=== PATIENT | male | born 1945 | race Caucasian/White ===

== ENCOUNTER 2017-01-02 10:30 | Inpatient (IN) | payer MEDICARE, MEDICAID ==
[~2017-01-02] VITALS: Ht 167.6 cm; Wt 89.4 kg
[~2017-01-02 10:30] MED LIST: ACET325T14 PO; ALBU8.5H5 INH; AMIO200T42 PO; APIX5TAB PO; ASPI-621 PO; AZIT250T PO; BENZ100C4 PO; BLOOD PRESSURE MED PO; BUDE10.22 INH; CEFD300C37 PO; ENOX40SY4 SQ; FLUT1AER INH; FLUT1DIS INH; FLUT1DIS3 INH; GUAI600T22 PO; HYDR-3138 PO; INSU100I18 SQ-INSULIN; IPRA3AMP NPPB; ISOS30TA8 PO; LISI-167 PO; LISI5TAB7 PO; METF100010 PO; METF500T27 PO; METF500T4 PO; METF850T2 PO; METH10TA6 PO; METH750T2 PO; METO50TA82 PO; NICO1PAT4 TD; NICO1PAT5 TD; PRED10TA PO; PRED20TA PO; TIOT18CA INH
[2017-01-02] MEDS ORDERED: SODIUM CHLORIDE 0.9% 1,000 ML IV ONE (10:50)
[2017-01-02] MEDS ORDERED: ALBUTEROL/IPRATROPIUM 2.5MG/0.5MG, 3 ML ONE (10:58)
[2017-01-02] MEDS ORDERED: methylPREDNISolone SOD SUCC 125 MG/2 ML IVP ONE (11:00)
[2017-01-02] MEDS ORDERED: ALBUTEROL/IPRATROPIUM 2.5MG/0.5MG, 3 ML NPPB ONE (11:00)
[2017-01-02] MEDS ORDERED: SODIUM CHLORIDE FLUSH 10ML SYR IVF ONE (11:00)
[2017-01-02] MEDS ORDERED: methylPREDNISolone SOD SUCC 125 MG/2 ML ONE (11:08)
[2017-01-02] MEDS ORDERED: METH10TA6 PO (11:20)
[2017-01-02] MEDS ORDERED: CEFTRIAXONE PMX 1GM/50ML 50 ML IVPB ONE (12:00)
[2017-01-02] MEDS ORDERED: AZITHROMYCIN 500 MG in SODIUM CHLORIDE 0.9% 250 ML IV ONE (12:00)
[2017-01-02] MEDS ORDERED: MORPHINE SULFATE 4 MG/ML, 1ML ONE (12:08)
[2017-01-02] MEDS ORDERED: CEFTRIAXONE PMX 1GM/50ML 50 ML ONE (12:09)
[2017-01-02 12:19] LABS: BLOOD UREA NITROGEN 27 mg/dL (7-18)
[2017-01-02 12:24] LABS: IS PT STATUS REG ER OR PRE ER? YES
[2017-01-02] MEDS ORDERED: MORPHINE SULFATE 4 MG/ML, 1ML IVPush ONE (12:30)
[2017-01-02] MEDS ORDERED: INSULIN REGULAR 100 UNITS/ML, 3ML VIAL IVPush ONE (13:00)
[2017-01-02] MEDS ORDERED: DEXTROSE 50%, 50ML SYRINGE IVPush ONE (13:00)
[2017-01-02] MEDS ORDERED: DEXTROSE 50%, 50ML SYRINGE ONE (13:01)
[2017-01-02] MEDS ORDERED: INSULIN REGULAR 100 UNITS/ML, 3ML VIAL ONE (13:01)
[2017-01-02] MEDS: CEFTRIAXONE PMX 1GM/50ML 50 ML IV SCH (13:16)
[2017-01-02] MEDS ORDERED: LABETALOL 5MG/ML, 20ML IV PRN (13:30)
[2017-01-02] MEDS ORDERED: BISACODYL 10 MG SUPP PR PRN (13:30)
[2017-01-02] MEDS ORDERED: POLYETHYLENE GLYCOL 17 GM PACKET PO PRN (13:30)
[2017-01-02] MEDS ORDERED: ONDANSETRON 2MG/ML, 2ML IVP PRN (13:30)
[2017-01-02] MEDS ORDERED: DOCUSATE 100 MG CAPSULE PO PRN (13:30)
[2017-01-02] MEDS ORDERED: ACETAMINOPHEN 325 MG TABLET PO PRN (13:30)
[2017-01-02] MEDS: methylPREDNISolone SOD SUCC 125 MG/2 ML IVPush SCH ×2 (13:45→21:51)
[2017-01-02 14:33] VITALS: BP 109/79
[2017-01-02] MEDS: ALBUTEROL/IPRATROPIUM 2.5MG/0.5MG, 3 ML NPPB SCH ×2 (14:50→20:00)
[2017-01-02] MEDS: DOXYCYCLINE 100 MG in DEXTROSE 5% 250 ML IV SCH (15:58)
[2017-01-02] MEDS: MORPHINE SULFATE 4 MG/ML, 1ML IVPush PRN (15:58)
[2017-01-02] MEDS: HYDROcodone/APAP 5/325 TABLET PO PRN (17:43)
[2017-01-02] MEDS ORDERED: OMNIPAQUE 350 MG/ML, 100ML BOTTLE ONE (18:30)
[2017-01-02 20:55] VITALS: BP 132/80
[2017-01-02] MEDS: GUAIFENESIN ER 600 MG TABLET PO SCH (21:50)
[2017-01-02] MEDS: HEPARIN 5,000 UNITS/ML, 1ML SQ SCH (21:51)
[2017-01-02] MEDS: METOPROLOL TARTRATE 50 MG TABLET PO SCH (21:51)
[2017-01-02 22:00] VITALS: BP 124/71
[2017-01-03] MEDS: SODIUM CHLORIDE 0.9% 1,000 ML IV SCH ×2 (00:25→15:06)
[2017-01-03] MEDS: ALBUTEROL/IPRATROPIUM 2.5MG/0.5MG, 3 ML NPPB SCH ×5 (02:00→19:45)
[2017-01-03 02:14] VITALS: BP 122/75
[2017-01-03] MEDS: HYDROcodone/APAP 5/325 TABLET PO PRN ×4 (04:32→22:09)
[2017-01-03] MEDS: DOXYCYCLINE 100 MG in DEXTROSE 5% 250 ML IV SCH ×2 (04:49→17:04)
[2017-01-03] MEDS: HEPARIN 5,000 UNITS/ML, 1ML SQ SCH ×3 (04:53→21:51)
[2017-01-03] MEDS: methylPREDNISolone SOD SUCC 125 MG/2 ML IVPush SCH ×3 (04:53→21:51)
[2017-01-03] MEDS: ASPIRIN 81 MG TABLET EC PO SCH (04:58)
[2017-01-03 06:18] LABS: BLOOD UREA NITROGEN 27 mg/dL (7-18)
[2017-01-03 06:55] VITALS: BP 156/93
[2017-01-03] MEDS: metFORMIN XR 500 MG TAB.ER.24H PO SCH ×3 (07:46→09:00)
[2017-01-03] MEDS: GUAIFENESIN ER 600 MG TABLET PO SCH ×2 (07:46→21:51)
[2017-01-03] MEDS: ISOSORBIDE MONONITRATE ER 30 MG TABLET PO SCH (07:48)
[2017-01-03] MEDS: METOPROLOL TARTRATE 50 MG TABLET PO SCH ×2 (07:48→21:51)
[2017-01-03] MEDS: FLUTICASONE/VILANTEROL 100-25MCG/INH INH SCH (08:04)
[2017-01-03] MEDS ORDERED: LISINOPRIL 10 MG TABLET PO SCH (09:00)
[2017-01-03 11:23] LABS: IS PT STATUS REG ER OR PRE ER? NO
[2017-01-03] MEDS: INSULIN REGULAR 100 UNITS/ML, 3ML VIAL SQ-INSULIN SCH ×3 (12:00→22:08)
[2017-01-03 13:26] VITALS: BP 112/65
[2017-01-03] MEDS: CEFTRIAXONE PMX 1GM/50ML 50 ML IV SCH (15:07)
[2017-01-03 20:40] VITALS: BP 136/78
[2017-01-03 21:58] VITALS: BP 145/79
[2017-01-04 01:26] VITALS: BP 188/117
[2017-01-04] MEDS ORDERED: LABETALOL 5MG/ML, 20ML IV PRN (01:34)
[2017-01-04] MEDS: MORPHINE SULFATE 4 MG/ML, 1ML IVPush PRN (01:41)
[2017-01-04 01:45] VITALS: BP 155/82
[2017-01-04 03:29] LABS: ABG COLLECTION SITE NOT DOCUMENTED
[2017-01-04 03:41] LABS: BLOOD UREA NITROGEN 31 mg/dL (7-18)
[2017-01-04] MEDS: HYDROcodone/APAP 5/325 TABLET PO PRN (03:54)
[2017-01-04] MEDS: DOXYCYCLINE 100 MG in DEXTROSE 5% 250 ML IV SCH ×2 (03:56→16:18)
[2017-01-04] MEDS: methylPREDNISolone SOD SUCC 125 MG/2 ML IVPush SCH ×2 (05:11→18:11)
[2017-01-04] MEDS: HEPARIN 5,000 UNITS/ML, 1ML SQ SCH ×3 (05:11→20:28)
[2017-01-04] MEDS: ASPIRIN 81 MG TABLET EC PO SCH (05:11)
[2017-01-04] MEDS: ALBUTEROL/IPRATROPIUM 2.5MG/0.5MG, 3 ML NPPB SCH ×4 (07:15→19:05)
[2017-01-04 08:28] VITALS: BP 149/94
[2017-01-04] MEDS: FLUTICASONE/VILANTEROL 100-25MCG/INH INH SCH (08:50)
[2017-01-04] MEDS: GUAIFENESIN ER 600 MG TABLET PO SCH ×2 (08:50→20:29)
[2017-01-04] MEDS: INSULIN REGULAR 100 UNITS/ML, 3ML VIAL SQ-INSULIN SCH ×4 (08:50→20:28)
[2017-01-04] MEDS: METOPROLOL TARTRATE 50 MG TABLET PO SCH ×2 (08:51→20:29)
[2017-01-04] MEDS: ISOSORBIDE MONONITRATE ER 30 MG TABLET PO SCH (08:51)
[2017-01-04] MEDS: CEFTRIAXONE PMX 1GM/50ML 50 ML IV SCH (13:09)
[2017-01-04 15:30] VITALS: BP 113/52
[2017-01-04 20:15] VITALS: BP 142/73
[2017-01-05 00:08] VITALS: BP 173/92
[2017-01-05] MEDS: DOXYCYCLINE 100 MG in DEXTROSE 5% 250 ML IV SCH ×2 (04:23→16:30)
[2017-01-05] MEDS: HEPARIN 5,000 UNITS/ML, 1ML SQ SCH ×3 (04:24→20:42)
[2017-01-05] MEDS: HYDROcodone/APAP 5/325 TABLET PO PRN ×2 (04:32→08:54)
[2017-01-05] MEDS: methylPREDNISolone SOD SUCC 125 MG/2 ML IVPush SCH ×2 (05:26→17:41)
[2017-01-05] MEDS: ASPIRIN 81 MG TABLET EC PO SCH (05:26)
[2017-01-05 06:12] LABS: BLOOD UREA NITROGEN 37 mg/dL (7-18)
[2017-01-05] MEDS: ALBUTEROL/IPRATROPIUM 2.5MG/0.5MG, 3 ML NPPB SCH ×4 (07:00→20:00)
[2017-01-05 07:48] VITALS: BP 158/92
[2017-01-05] MEDS: GUAIFENESIN ER 600 MG TABLET PO SCH (08:06)
[2017-01-05] MEDS: ISOSORBIDE MONONITRATE ER 30 MG TABLET PO SCH (08:06)
[2017-01-05] MEDS: FLUTICASONE/VILANTEROL 100-25MCG/INH INH SCH (08:06)
[2017-01-05] MEDS: INSULIN REGULAR 100 UNITS/ML, 3ML VIAL SQ-INSULIN SCH ×4 (08:06→20:43)
[2017-01-05] MEDS: METOPROLOL TARTRATE 50 MG TABLET PO SCH ×2 (08:07→20:41)
[2017-01-05] MEDS ORDERED: BENZONATATE 100 MG CAPSULE PO PRN (11:00)
[2017-01-05] MEDS: CEFTRIAXONE PMX 1GM/50ML 50 ML IV SCH (13:26)
[2017-01-05 13:59] VITALS: BP 127/79
[2017-01-05 20:21] VITALS: BP 168/95
[2017-01-05] MEDS: MORPHINE SULFATE 4 MG/ML, 1ML IVPush PRN (20:42)
[2017-01-06 04:00] VITALS: BP 188/97
[2017-01-06] MEDS: HEPARIN 5,000 UNITS/ML, 1ML SQ SCH ×3 (04:50→22:12)
[2017-01-06] MEDS: DOXYCYCLINE 100 MG in DEXTROSE 5% 250 ML IV SCH ×2 (04:50→16:39)
[2017-01-06] MEDS: ASPIRIN 81 MG TABLET EC PO SCH (04:51)
[2017-01-06] MEDS: methylPREDNISolone SOD SUCC 125 MG/2 ML IVPush SCH ×2 (04:51→16:39)
[2017-01-06 06:23] LABS: BLOOD UREA NITROGEN 42 mg/dL (7-18)
[2017-01-06] MEDS: ALBUTEROL/IPRATROPIUM 2.5MG/0.5MG, 3 ML NPPB SCH ×4 (07:00→19:27)
[2017-01-06 07:32] VITALS: BP 149/101
[2017-01-06] MEDS: FLUTICASONE/VILANTEROL 100-25MCG/INH INH SCH (08:53)
[2017-01-06] MEDS: METOPROLOL TARTRATE 50 MG TABLET PO SCH ×2 (08:53→22:11)
[2017-01-06] MEDS: ISOSORBIDE MONONITRATE ER 30 MG TABLET PO SCH (08:53)
[2017-01-06] MEDS: INSULIN REGULAR 100 UNITS/ML, 3ML VIAL SQ-INSULIN SCH ×4 (08:55→22:13)
[2017-01-06] MEDS: MORPHINE SULFATE 4 MG/ML, 1ML IVPush PRN ×2 (09:06→22:33)
[2017-01-06] MEDS: GUAIFENESIN 200 MG TABLET PO SCH ×3 (11:20→21:00)
[2017-01-06 12:09] LABS: BLOOD UREA NITROGEN 41 mg/dL (7-18)
[2017-01-06] MEDS: CEFTRIAXONE PMX 1GM/50ML 50 ML IV SCH (14:24)
[2017-01-06 14:47] VITALS: BP 129/51
[2017-01-06 20:00] VITALS: BP 129/70
[2017-01-07 02:00] VITALS: BP 148/96
[2017-01-07] MEDS: DOXYCYCLINE 100 MG in DEXTROSE 5% 250 ML IV SCH (04:53)
[2017-01-07] MEDS: ASPIRIN 81 MG TABLET EC PO SCH (05:00)
[2017-01-07] MEDS: methylPREDNISolone SOD SUCC 125 MG/2 ML IVPush SCH (05:00)
[2017-01-07 05:35] LABS: BLOOD UREA NITROGEN 45 mg/dL (7-18)
[2017-01-07] MEDS: GUAIFENESIN 200 MG TABLET PO SCH ×2 (06:21→11:16)
[2017-01-07] MEDS: HEPARIN 5,000 UNITS/ML, 1ML SQ SCH (06:21)
[2017-01-07] MEDS: ALBUTEROL/IPRATROPIUM 2.5MG/0.5MG, 3 ML NPPB SCH ×2 (07:00→10:04)
[2017-01-07 08:10] VITALS: BP 181/108
[2017-01-07] MEDS: INSULIN REGULAR 100 UNITS/ML, 3ML VIAL SQ-INSULIN SCH ×2 (08:11→11:17)
[2017-01-07] MEDS: FLUTICASONE/VILANTEROL 100-25MCG/INH INH SCH (08:11)
[2017-01-07] MEDS: METOPROLOL TARTRATE 50 MG TABLET PO SCH (08:12)
[2017-01-07] MEDS: ISOSORBIDE MONONITRATE ER 30 MG TABLET PO SCH (08:12)
[2017-01-07] MEDS ORDERED: PRED10TA PO (08:52)
[2017-01-07] MEDS ORDERED: CEFD300C37 PO (08:52)
[2017-01-07] MEDS ORDERED: GUAI400T26 PO (08:52)
[2017-01-07 09:10] VITALS: BP 149/82
== END 2017-01-07 12:05 | disposition home or self-care (01) | DRG 871 ==
LOC: ED 11:42 → EDIP 12:15 → 4WST 14:35 → DCLOUNGE 01-07 11:50
PROVIDERS: ADMIT Internal Medicine; ATTEND Internal Medicine
DX: A41.9 Sepsis, unspecified organism (principal); J18.9 Pneumonia, unspecified organism; J96.01 Acute respiratory failure with hypoxia; E87.1 Hypo-osmolality and hyponatremia; D68.69 Other thrombophilia; J44.0 Chronic obstructive pulmonary disease with (acute) lower respiratory infection; J44.1 Chronic obstructive pulmonary disease with (acute) exacerbation; J90 Pleural effusion, not elsewhere classified; E87.5 Hyperkalemia; I48.91 Unspecified atrial fibrillation; E05.90 Thyrotoxicosis, unspecified without thyrotoxic crisis or storm; E11.65 Type 2 diabetes mellitus with hyperglycemia; E66.9 Obesity, unspecified; F17.210 Nicotine dependence, cigarettes, uncomplicated; I11.9 Hypertensive heart disease without heart failure; I25.10 Atherosclerotic heart disease of native coronary artery without angina pectoris; I25.2 Old myocardial infarction; Z79.84 Long term (current) use of oral hypoglycemic drugs; Z82.49 Family history of ischemic heart disease and other diseases of the circulatory system; Z83.3 Family history of diabetes mellitus; Z91.19 Patient's noncompliance with other medical treatment and regimen; Z79.82 Long term (current) use of aspirin; Z79.899 Other long term (current) drug therapy; Z71.6 Tobacco abuse counseling
CPT/HCPCS: 36415; 36600; 71010; 71250; 74178; 80048; 82040; 82803; 82962; 83605; 83880; 84132; 84145; 84484; 85025; 87040; 87070; 87205; 93005; 93306; 94640; 96361; 96365; 96367; 96375; J0456; J0696; J1644; J1815; J7060; J7620; Q9967; J2930; J7030; J7050

== ENCOUNTER 2017-04-11 08:02 | Inpatient (IN) | payer MEDICARE, MEDICAID ==
[~2017-04-11] VITALS: Ht 167.6 cm; Wt 86.7 kg
[~2017-04-11 08:02] MED LIST changes: +GUAI400T26 PO
[2017-04-11] MEDS ORDERED: ALBUTEROL/IPRATROPIUM 2.5MG/0.5MG, 3 ML ONE ×2 (08:24→13:49)
[2017-04-11] MEDS ORDERED: SODIUM CHLORIDE FLUSH 10ML SYR IVF ONE (08:30)
[2017-04-11] MEDS ORDERED: ALBUTEROL/IPRATROPIUM 2.5MG/0.5MG, 3 ML NPPB ONE (08:30)
[2017-04-11] MEDS ORDERED: ONDANSETRON 2MG/ML, 2ML IVPush ONE (08:30)
[2017-04-11 08:35] LABS: HEMATOCRIT 43.8 % (39.2-51.8); HEMOGLOBIN 14.5 g/dL (13.7-18.0); WHITE BLOOD COUNT 13.9 x10^3/uL (3.4-10)
[2017-04-11 08:42] LABS: BLOOD UREA NITROGEN 20 mg/dL (7-18)
[2017-04-11] MEDS ORDERED: ONDANSETRON 2MG/ML, 2ML ONE (08:47)
[2017-04-11] MEDS ORDERED: HYDROmorphone 1 MG/ML, 1ML ONE ×2 (08:47→10:50)
[2017-04-11] MEDS: HYDROmorphone 1 MG/ML, 1ML IVPush PRN ×2 (08:48→10:52)
[2017-04-11 08:51] LABS: IS PT STATUS REG ER OR PRE ER? YES
[2017-04-11] MEDS ORDERED: INSU100I17 SQ (10:46)
[2017-04-11] MEDS ORDERED: D5%-0.45NACL+KCL 20MEQ 1,000 ML IV SCH (11:15)
[2017-04-11] MEDS ORDERED: POLYETHYLENE GLYCOL 17 GM PACKET PO PRN (11:30)
[2017-04-11] MEDS ORDERED: DOCUSATE 100 MG CAPSULE PO PRN (11:30)
[2017-04-11] MEDS ORDERED: BISACODYL 10 MG SUPP PR PRN (11:30)
[2017-04-11] MEDS ORDERED: LABETALOL 5MG/ML, 20ML IVPush PRN (11:30)
[2017-04-11] MEDS ORDERED: ACETAMINOPHEN 325 MG TABLET PO PRN (11:30)
[2017-04-11] MEDS ORDERED: ONDANSETRON 2MG/ML, 2ML IVPush PRN (11:30)
[2017-04-11] MEDS: HYDROcodone/APAP 5/325 TABLET PO PRN ×2 (12:24→16:57)
[2017-04-11] MEDS: HEPARIN 5,000 UNITS/ML, 1ML SQ SCH ×2 (12:24→20:05)
[2017-04-11 13:08] VITALS: BP 160/94
[2017-04-11] MEDS: ALBUTEROL/IPRATROPIUM 2.5MG/0.5MG, 3 ML NPPB SCH ×3 (15:00→20:42)
[2017-04-11 19:13] VITALS: BP 125/81
[2017-04-11] MEDS: METOPROLOL TARTRATE 50 MG TABLET PO SCH (20:05)
[2017-04-11] MEDS: metFORMIN 500 MG TABLET PO SCH (20:05)
[2017-04-11] MEDS: morphine SULFATE 10 MG/ML, 1ML IVPush PRN (20:22)
[2017-04-11 22:48] LABS: PATH.CAST-FLAG NOT PRESENT; SPERM-FLAG NOT PRESENT; SRC-FLAG NOT PRESENT; XTAL-FLAG NOT PRESENT; YLC-FLAG NOT PRESENT
[2017-04-12 00:04] VITALS: BP 142/80
[2017-04-12] MEDS: morphine SULFATE 10 MG/ML, 1ML IVPush PRN ×4 (00:31→16:22)
[2017-04-12 04:08] VITALS: BP 150/85
[2017-04-12] MEDS: HEPARIN 5,000 UNITS/ML, 1ML SQ SCH ×3 (04:59→22:20)
[2017-04-12] MEDS: ASPIRIN 81 MG TABLET EC PO SCH (04:59)
[2017-04-12] MEDS: ALBUTEROL/IPRATROPIUM 2.5MG/0.5MG, 3 ML NPPB SCH ×5 (05:30→20:00)
[2017-04-12 06:09] LABS: HEMATOCRIT 43.9 % (39.2-51.8); HEMOGLOBIN 14.6 g/dL (13.7-18.0); WHITE BLOOD COUNT 15.4 x10^3/uL (3.4-10)
[2017-04-12 06:26] LABS: BLOOD UREA NITROGEN 20 mg/dL (7-18)
[2017-04-12] MEDS: HYDROcodone/APAP 5/325 TABLET PO PRN ×3 (08:11→22:21)
[2017-04-12] MEDS: FLUTICASONE/VILANTEROL 100-25MCG/INH INH SCH (10:04)
[2017-04-12] MEDS: LISINOPRIL 10 MG TABLET PO SCH (10:04)
[2017-04-12] MEDS: ISOSORBIDE MONONITRATE ER 30 MG TABLET PO SCH (10:04)
[2017-04-12] MEDS: metFORMIN 500 MG TABLET PO SCH ×2 (10:05→22:20)
[2017-04-12] MEDS: METOPROLOL TARTRATE 50 MG TABLET PO SCH ×2 (10:05→22:21)
[2017-04-12 15:21] VITALS: BP 97/56
[2017-04-12] MEDS ORDERED: LIDOCAINE 1%, 20ML ONE (16:19)
[2017-04-12 19:12] VITALS: BP 89/54
[2017-04-12 21:06] VITALS: BP 107/66
[2017-04-12] MEDS: KETOROLAC 30 MG/1 ML IVPush PRN (22:21)
[2017-04-13 00:57] VITALS: BP 120/73
[2017-04-13] MEDS: HEPARIN 5,000 UNITS/ML, 1ML SQ SCH ×3 (05:58→20:51)
[2017-04-13] MEDS: ASPIRIN 81 MG TABLET EC PO SCH (05:58)
[2017-04-13] MEDS: KETOROLAC 30 MG/1 ML IVPush PRN (05:59)
[2017-04-13 07:43] LABS: HEMATOCRIT 39.8 % (39.2-51.8); HEMOGLOBIN 13.2 g/dL (13.7-18.0); WHITE BLOOD COUNT 12.4 x10^3/uL (3.4-10)
[2017-04-13] MEDS: ALBUTEROL/IPRATROPIUM 2.5MG/0.5MG, 3 ML NPPB SCH ×4 (07:48→18:55)
[2017-04-13 07:51] LABS: BLOOD UREA NITROGEN 42 mg/dL (7-18)
[2017-04-13 08:40] VITALS: BP 90/59
[2017-04-13] MEDS: METOPROLOL TARTRATE 50 MG TABLET PO SCH ×2 (09:00→20:51)
[2017-04-13] MEDS: LISINOPRIL 10 MG TABLET PO SCH (09:00)
[2017-04-13] MEDS: FLUTICASONE/VILANTEROL 100-25MCG/INH INH SCH (09:10)
[2017-04-13] MEDS: metFORMIN 500 MG TABLET PO SCH (09:11)
[2017-04-13] MEDS: ISOSORBIDE MONONITRATE ER 30 MG TABLET PO SCH (09:11)
[2017-04-13] MEDS ORDERED: DEXTROSE 4 GM TAB.CHEW PO PRN (11:30)
[2017-04-13] MEDS ORDERED: GLUCAGON 1 MG IM PRN (11:30)
[2017-04-13] MEDS: SODIUM CHLORIDE FLUSH 10ML SYR IVF SCH ×2 (11:30→21:00)
[2017-04-13] MEDS ORDERED: DEXTROSE 50%, 50ML SYRINGE IVPush PRN (11:30)
[2017-04-13] MEDS: INSULIN ASPART 100 UNITS/ML, PEN SQ-INSULIN SCH ×3 (11:30→20:51)
[2017-04-13] MEDS: SODIUM CHLORIDE 0.9% 1,000 ML IV SCH ×2 (12:16→22:57)
[2017-04-13] MEDS: HYDROcodone/APAP 5/325 TABLET PO PRN ×2 (12:33→20:51)
[2017-04-13 15:00] VITALS: BP 119/65
[2017-04-13 17:11] LABS: BLOOD UREA NITROGEN 42 mg/dL (7-18)
[2017-04-13 19:44] VITALS: BP 111/71
[2017-04-14 03:10] VITALS: BP 133/81
[2017-04-14] MEDS: HYDROcodone/APAP 5/325 TABLET PO PRN ×4 (04:51→20:09)
[2017-04-14] MEDS: HEPARIN 5,000 UNITS/ML, 1ML SQ SCH ×3 (04:51→22:51)
[2017-04-14] MEDS: ASPIRIN 81 MG TABLET EC PO SCH (04:51)
[2017-04-14 05:35] LABS: HEMATOCRIT 35.7 % (39.2-51.8); HEMOGLOBIN 11.6 g/dL (13.7-18.0); WHITE BLOOD COUNT 8.2 x10^3/uL (3.4-10)
[2017-04-14 05:58] LABS: BLOOD UREA NITROGEN 40 mg/dL (7-18)
[2017-04-14 06:54] VITALS: BP 144/90
[2017-04-14] MEDS: INSULIN ASPART 100 UNITS/ML, PEN SQ-INSULIN SCH ×4 (07:00→22:47)
[2017-04-14] MEDS: ALBUTEROL/IPRATROPIUM 2.5MG/0.5MG, 3 ML NPPB SCH ×4 (07:30→19:50)
[2017-04-14] MEDS: ISOSORBIDE MONONITRATE ER 30 MG TABLET PO SCH (08:28)
[2017-04-14] MEDS: SODIUM CHLORIDE FLUSH 10ML SYR IVF SCH ×2 (08:28→20:10)
[2017-04-14] MEDS: FLUTICASONE/VILANTEROL 100-25MCG/INH INH SCH (08:28)
[2017-04-14] MEDS: METOPROLOL TARTRATE 50 MG TABLET PO SCH ×2 (08:28→20:08)
[2017-04-14] MEDS ORDERED: SODIUM CHLORIDE 0.9% 1,000 ML IV SCH (13:30)
[2017-04-14 15:08] VITALS: BP 135/86
[2017-04-14 19:35] VITALS: BP 134/82
[2017-04-14] MEDS ORDERED: DIPHENHYDRAMINE 25 MG CAPSULE PO ONE (22:30)
[2017-04-15 03:15] VITALS: BP 162/96
[2017-04-15] MEDS ORDERED: ZIPRASIDONE 20 MG INJ IM ONE (03:30)
[2017-04-15 05:50] LABS: BLOOD UREA NITROGEN 31 mg/dL (7-18)
[2017-04-15] MEDS: HEPARIN 5,000 UNITS/ML, 1ML SQ SCH ×3 (06:00→21:06)
[2017-04-15] MEDS: ASPIRIN 81 MG TABLET EC PO SCH (06:00)
[2017-04-15] MEDS: INSULIN ASPART 100 UNITS/ML, PEN SQ-INSULIN SCH ×4 (07:00→21:14)
[2017-04-15] MEDS: ALBUTEROL/IPRATROPIUM 2.5MG/0.5MG, 3 ML NPPB SCH ×4 (07:15→19:23)
[2017-04-15 07:40] VITALS: BP 160/98
[2017-04-15] MEDS: SODIUM CHLORIDE FLUSH 10ML SYR IVF SCH ×2 (09:35→21:00)
[2017-04-15] MEDS: FLUTICASONE/VILANTEROL 100-25MCG/INH INH SCH (09:35)
[2017-04-15] MEDS: ISOSORBIDE MONONITRATE ER 30 MG TABLET PO SCH (09:36)
[2017-04-15] MEDS: METOPROLOL TARTRATE 50 MG TABLET PO SCH ×2 (09:36→21:13)
[2017-04-15 13:55] VITALS: BP 134/84
[2017-04-15 19:14] VITALS: BP 132/88
[2017-04-16 01:55] VITALS: BP 132/89
[2017-04-16] MEDS: ASPIRIN 81 MG TABLET EC PO SCH (05:12)
[2017-04-16] MEDS: HEPARIN 5,000 UNITS/ML, 1ML SQ SCH ×3 (05:12→20:17)
[2017-04-16 06:11] LABS: BLOOD UREA NITROGEN 34 mg/dL (7-18)
[2017-04-16 06:36] VITALS: BP 142/74
[2017-04-16] MEDS: INSULIN ASPART 100 UNITS/ML, PEN SQ-INSULIN SCH ×4 (07:00→20:17)
[2017-04-16] MEDS: ALBUTEROL/IPRATROPIUM 2.5MG/0.5MG, 3 ML NPPB SCH ×4 (08:05→19:45)
[2017-04-16] MEDS: METOPROLOL TARTRATE 50 MG TABLET PO SCH ×2 (08:34→20:17)
[2017-04-16] MEDS: FLUTICASONE/VILANTEROL 100-25MCG/INH INH SCH (08:34)
[2017-04-16] MEDS: SODIUM CHLORIDE FLUSH 10ML SYR IVF SCH ×2 (08:35→20:09)
[2017-04-16] MEDS: ISOSORBIDE MONONITRATE ER 30 MG TABLET PO SCH (08:35)
[2017-04-16 12:20] VITALS: BP 131/73
[2017-04-16] MEDS ORDERED: LABETALOL 5MG/ML, 20ML IVPush PRN (18:30)
[2017-04-16] MEDS ORDERED: ACETAMINOPHEN 325 MG TABLET PO PRN (18:30)
[2017-04-16] MEDS ORDERED: DEXTROSE 4 GM TAB.CHEW PO PRN (18:30)
[2017-04-16] MEDS ORDERED: BISACODYL 10 MG SUPP PR PRN (18:30)
[2017-04-16] MEDS ORDERED: POLYETHYLENE GLYCOL 17 GM PACKET PO PRN (18:30)
[2017-04-16] MEDS ORDERED: DOCUSATE 100 MG CAPSULE PO PRN (18:30)
[2017-04-16 20:14] VITALS: BP 152/88
[2017-04-17 02:00] VITALS: BP 140/79
[2017-04-17] MEDS: ASPIRIN 81 MG TABLET EC PO SCH (05:45)
[2017-04-17] MEDS: HEPARIN 5,000 UNITS/ML, 1ML SQ SCH (05:46)
[2017-04-17] MEDS: ALBUTEROL/IPRATROPIUM 2.5MG/0.5MG, 3 ML NPPB SCH ×2 (06:43→10:30)
[2017-04-17 06:47] VITALS: BP 158/97
[2017-04-17] MEDS: FLUTICASONE/VILANTEROL 100-25MCG/INH INH SCH (08:05)
[2017-04-17] MEDS: INSULIN ASPART 100 UNITS/ML, PEN SQ-INSULIN SCH ×2 (08:05→11:00)
[2017-04-17] MEDS: ISOSORBIDE MONONITRATE ER 30 MG TABLET PO SCH (08:06)
[2017-04-17] MEDS: METOPROLOL TARTRATE 50 MG TABLET PO SCH (08:06)
[2017-04-17] MEDS: SODIUM CHLORIDE FLUSH 10ML SYR IVF SCH (08:07)
[2017-04-17] MEDS ORDERED: PRED20TA PO (09:59)
== END 2017-04-17 11:54 | disposition home health service (06) | DRG 682 ==
LOC: ED 09:45 → EDIP 10:06 → 4EST 11:28
PROVIDERS: ADMIT Internal Medicine; ATTEND Family Medicine
DX: I12.9 Hypertensive chronic kidney disease with stage 1 through stage 4 chronic kidney disease, or unspecified chronic kidney disease (principal); J96.20 Acute and chronic respiratory failure, unspecified whether with hypoxia or hypercapnia; D68.69 Other thrombophilia; E11.22 Type 2 diabetes mellitus with diabetic chronic kidney disease; E11.65 Type 2 diabetes mellitus with hyperglycemia; E87.1 Hypo-osmolality and hyponatremia; N18.3 Chronic kidney disease, stage 3 (moderate); G45.9 Transient cerebral ischemic attack, unspecified; J44.1 Chronic obstructive pulmonary disease with (acute) exacerbation; I48.92 Unspecified atrial flutter; M75.51 Bursitis of right shoulder; W01.0XXA Fall on same level from slipping, tripping and stumbling without subsequent striking against object, initial encounter; D72.829 Elevated white blood cell count, unspecified; F17.210 Nicotine dependence, cigarettes, uncomplicated; I25.10 Atherosclerotic heart disease of native coronary artery without angina pectoris; I48.91 Unspecified atrial fibrillation; M19.019 Primary osteoarthritis, unspecified shoulder; F10.20 Alcohol dependence, uncomplicated; F12.90 Cannabis use, unspecified, uncomplicated; F17.200 Nicotine dependence, unspecified, uncomplicated; Z79.84 Long term (current) use of oral hypoglycemic drugs; Z82.49 Family history of ischemic heart disease and other diseases of the circulatory system; Z83.3 Family history of diabetes mellitus; Z91.14 Patient's other noncompliance with medication regimen; Z99.81 Dependence on supplemental oxygen; I25.2 Old myocardial infarction; Z71.6 Tobacco abuse counseling; Y93.89 Activity, other specified; Y92.091 Bathroom in other non-institutional residence as the place of occurrence of the external cause; Y99.8 Other external cause status
CPT/HCPCS: 36415; 70450; 70551; 71010; 80048; 80061; 81001; 82040; 82550; 82962; 84443; 84484; 85025; 85610; 85730; 94640; 96374; 96375; 96376; J1170; J1644; J1815; J1885; J2405; J3486; J3490; J7620; J2270; J3480; J7030; J7512; Q0163

== ENCOUNTER 2018-05-14 21:21 | Inpatient (IN) | payer MEDICARE, MEDICAID ==
[~2018-05-14] VITALS: Ht 167.6 cm; Wt 92.1 kg
[~2018-05-14 21:21] MED LIST changes: +AMLO5TAB7 PO; +BENZ-17 PO; -BENZ100C4 PO; +DOCU-131 PO; +GABA-826 PO; +GUAI-103 PO; +GUAI200T3 PO; -GUAI400T26 PO; +GUAI400T66 PO; -GUAI600T22 PO; +GUAI600T31 PO; +HEPA50002 SQ; -HYDR-3138 PO; +HYDR-3237 PO; +INSU100I17 SQ; +INSU100I28 SQ-INSULIN; -IPRA3AMP NPPB; +IPRA3AMP30 NPPB; +LACT20SO13 PO; +METF500T17 PO; -METF500T4 PO; +METF850T10 PO; -METF850T2 PO; +NICO-485 TD; +NICO-486 TD; +NICO-487 TD; -NICO1PAT4 TD; -NICO1PAT5 TD; +ONDA4TAB13 PO; +POLY17PO5 PO; +SIMV40TA PO; +TRAM50TA2 PO
[2018-05-14] MEDS ORDERED: SODIUM CHLORIDE 0.9% 1,000ML IVBOLUS ONE (21:30)
[2018-05-14] MEDS ORDERED: PLEASE ENTER HEIGHT AND WEIGHT MC SCH (21:30)
[2018-05-14] MEDS ORDERED: SODIUM CHLORIDE FLUSH 10ML SYR IVF ONE (21:30)
[2018-05-14] MEDS ORDERED: ALBUTEROL/IPRATROPIUM 2.5MG/0.5MG, 3 ML NPPB SCH (21:30)
[2018-05-14] MEDS ORDERED: methylPREDNISolone SOD SUCC 125 MG/2 ML IVP ONE (21:30)
[2018-05-14] MEDS ORDERED: ALBUTEROL/IPRATROPIUM 2.5MG/0.5MG, 3 ML NPPB PRN ×2 (21:30→23:30)
[2018-05-14] MEDS ORDERED: ASPIRIN 81 MG TABLET CHEW ONE (21:46)
[2018-05-14] MEDS ORDERED: NITROGLYCERIN SINGLE TAB 0.4 MG SL ONE (21:46)
[2018-05-14 21:47] LABS: BASOPHILS # (AUTO) 0.04 x10^3/uL (0-0.1); BASOPHILS % (AUTO) 0 % (0-1); EOSINOPHILS # (AUTO) 0.05 x10^3/uL (0-0.4); EOSINOPHILS % (AUTO) 0 % (1-7); LYMPHOCYTES # (AUTO) 1.21 x10^3/uL (1-3.4); LYMPHOCYTES % (AUTO) 8 % (22-44); MD NO; MEAN CORPUSCULAR HEMOGLOBIN 28.6 pg (27.5-34.5); MEAN CORPUSCULAR HGB CONC 33.2 g/dL (33.2-36.2); MEAN CORPUSCULAR VOLUME 86.1 fL (81-97); MEAN PLATELET VOLUME 8.1 fL (7.4-10.4); MONOCYTES # (AUTO) 0.89 x10^3/uL (0.2-0.8); MONOCYTES % (AUTO) 6 % (2-9); NEUTROPHILS # (AUTO) 12.84 x10^3/uL (1.8-6.8); NEUTROPHILS % (AUTO) 86 % (42-75); PLATELET COUNT 302 x10^3/uL (130-400); RED BLOOD COUNT 5.15 x10^6/uL (4.38-5.82); RED CELL DISTRIBUTION WIDTH 15.6 % (9.4-14.8)
[2018-05-14] MEDS ORDERED: methylPREDNISolone SOD SUCC 125 MG/2 ML ONE (21:47)
[2018-05-14] MEDS ORDERED: MORPHINE SULFATE 4 MG/ML, 1ML ONE (21:47)
[2018-05-14 22:00] LABS: ALANINE AMINOTRANSFERASE 21 U/L (12-78); ALBUMIN 3.5 g/dL (3.4-5.0); ANION GAP 7 mmol/L (5-15); CALCIUM 9.4 mg/dL (8.5-10.1); CHLORIDE 104 mmol/L (98-107); CREATININE 1.62 mg/dL (0.7-1.3)
[2018-05-14] MEDS ORDERED: MORPHINE SULFATE 4 MG/ML, 1ML IVPush PRN (22:00)
[2018-05-14] MEDS ORDERED: NITROGLYCERIN SINGLE TAB 0.4 MG SL PRN (22:00)
[2018-05-14] MEDS ORDERED: ASPIRIN 81 MG TABLET CHEW PO ONE (22:00)
[2018-05-14 22:04] LABS: ALKALINE PHOSPHATASE 87 U/L (45-117); BILIRUBIN,TOTAL 0.3 mg/dL (0.2-1.0); TOTAL PROTEIN 7.8 g/dL (6.4-8.2); TROPONIN I < 0.015 ng/mL (0.000-0.045)
[2018-05-14] MEDS ORDERED: CEFTRIAXONE PMX 1GM/50ML 50 ML ONE (22:17)
[2018-05-14] MEDS ORDERED: CEFTRIAXONE 1,000 MG in SODIUM CHLORIDE 0.9% 50 ML IV ONE (22:30)
[2018-05-14] MEDS ORDERED: AZITHROMYCIN 500 MG in SODIUM CHLORIDE 0.9% 250 ML IV ONE (22:30)
[2018-05-14 23:08] VITALS: BP 156/81
[2018-05-15] MEDS ORDERED: ACETAMINOPHEN 325 MG TABLET PO PRN
[2018-05-15] MEDS ORDERED: hydrALAzine 20 MG/ML, 1ML IVPush PRN
[2018-05-15] MEDS ORDERED: ONDANSETRON ODT 4 MG PO PRN
[2018-05-15 00:09] LABS: RAPID INFLUENZA A Negative (Negative); RAPID INFLUENZA B Negative (Negative)
[2018-05-15 00:36] VITALS: BP 145/91
[2018-05-15] MEDS: METOPROLOL TARTRATE 50 MG TABLET PO SCH ×3 (00:37→20:36)
[2018-05-15] MEDS: methylPREDNISolone SOD SUCC 40 MG/ML IV SCH ×4 (00:37→23:58)
[2018-05-15] MEDS: NICOTINE 7 MG/24 HR PATCH.TD24 TD SCH ×2 (00:37→23:58)
[2018-05-15 04:15] LABS: TROPONIN I < 0.015 ng/mL (0.000-0.045)
[2018-05-15] MEDS: ASPIRIN 81 MG TABLET EC PO SCH (05:50)
[2018-05-15] MEDS: ALBUTEROL/IPRATROPIUM 2.5MG/0.5MG, 3 ML NPPB SCH ×3 (07:00→19:48)
[2018-05-15 08:11] VITALS: BP 165/95
[2018-05-15 08:21] LABS: MEAN CORPUSCULAR HEMOGLOBIN 28.2 pg (27.5-34.5); MEAN CORPUSCULAR HGB CONC 32.6 g/dL (33.2-36.2); MEAN CORPUSCULAR VOLUME 86.5 fL (81-97); PLATELET COUNT 221 x10^3/uL (130-400); RED BLOOD COUNT 4.76 x10^6/uL (4.38-5.82); RED CELL DISTRIBUTION WIDTH 15.4 % (9.4-14.8)
[2018-05-15 08:28] LABS: ANION GAP 10 mmol/L (5-15); CALCIUM 8.8 mg/dL (8.5-10.1); CHLORIDE 107 mmol/L (98-107); CREATININE 1.75 mg/dL (0.7-1.3)
[2018-05-15] MEDS: ISOSORBIDE MONONITRATE ER 30 MG TABLET PO SCH (08:50)
[2018-05-15 08:56] LABS: BASOPHILS % (AUTO) 0 % (0-1); EOSINOPHILS # (AUTO) 0.06 x10^3/uL (0-0.4); EOSINOPHILS % (AUTO) 1 % (1-7); LYMPHOCYTES # (AUTO) 0.35 x10^3/uL (1-3.4); LYMPHOCYTES % (AUTO) 3 % (22-44); MD SCAN; MONOCYTES # (AUTO) 0.04 x10^3/uL (0.2-0.8); MONOCYTES % (AUTO) 0 % (2-9); NEUTROPHILS # (AUTO) 12.32 x10^3/uL (1.8-6.8); NEUTROPHILS % (AUTO) 97 % (42-75)
[2018-05-15] MEDS ORDERED: LISINOPRIL 10 MG TABLET PO SCH (09:00)
[2018-05-15] MEDS: FLUTICASONE/VILANTEROL 100-25MCG/INH INH SCH (09:44)
[2018-05-15] MEDS: INSULIN LISPRO 100 UNITS/ML, PEN SQ-INSULIN SCH ×4 (09:44→20:42)
[2018-05-15 09:54] LABS: TROPONIN I < 0.015 ng/mL (0.000-0.045)
[2018-05-15 12:12] VITALS: BP 125/74
[2018-05-15 18:41] VITALS: BP 122/75
[2018-05-15] MEDS: GUAIFENESIN ER 600 MG TABLET PO SCH (20:36)
[2018-05-15] MEDS: CEFTRIAXONE 1,000 MG in SODIUM CHLORIDE 0.9% 50 ML IV SCH (23:33)
[2018-05-15] MEDS: AZITHROMYCIN 500 MG in SODIUM CHLORIDE 0.9% 250 ML IV SCH (23:54)
[2018-05-16 00:37] VITALS: BP 150/83
[2018-05-16] MEDS: ASPIRIN 81 MG TABLET EC PO SCH (05:34)
[2018-05-16 06:05] LABS: BASOPHILS # (AUTO) 0.01 x10^3/uL (0-0.1); BASOPHILS % (AUTO) 0 % (0-1); EOSINOPHILS # (AUTO) 0.07 x10^3/uL (0-0.4); EOSINOPHILS % (AUTO) 0 % (1-7); LYMPHOCYTES # (AUTO) 0.51 x10^3/uL (1-3.4); LYMPHOCYTES % (AUTO) 3 % (22-44); MD NO; MEAN CORPUSCULAR HEMOGLOBIN 28.8 pg (27.5-34.5); MEAN CORPUSCULAR HGB CONC 33.4 g/dL (33.2-36.2); MEAN CORPUSCULAR VOLUME 86.4 fL (81-97); MEAN PLATELET VOLUME 8.7 fL (7.4-10.4); MONOCYTES % (AUTO) 2 % (2-9); NEUTROPHILS # (AUTO) 15.67 x10^3/uL (1.8-6.8); NEUTROPHILS % (AUTO) 94 % (42-75); PLATELET COUNT 283 x10^3/uL (130-400); RED BLOOD COUNT 4.74 x10^6/uL (4.38-5.82); RED CELL DISTRIBUTION WIDTH 15.5 % (9.4-14.8)
[2018-05-16 06:07] LABS: ANION GAP 10 mmol/L (5-15); CALCIUM 8.5 mg/dL (8.5-10.1); CHLORIDE 103 mmol/L (98-107)
[2018-05-16 06:08] LABS: CREATININE 1.34 mg/dL (0.7-1.3)
[2018-05-16] MEDS: ALBUTEROL/IPRATROPIUM 2.5MG/0.5MG, 3 ML NPPB SCH ×5 (06:28→22:41)
[2018-05-16 06:39] VITALS: BP 157/99
[2018-05-16] MEDS: INSULIN LISPRO 100 UNITS/ML, PEN SQ-INSULIN SCH ×4 (07:00→20:18)
[2018-05-16] MEDS: methylPREDNISolone SOD SUCC 40 MG/ML IV SCH ×3 (08:39→23:54)
[2018-05-16] MEDS: GUAIFENESIN ER 600 MG TABLET PO SCH ×2 (08:39→20:17)
[2018-05-16] MEDS: METOPROLOL TARTRATE 50 MG TABLET PO SCH ×2 (08:39→20:17)
[2018-05-16] MEDS: FLUTICASONE/VILANTEROL 100-25MCG/INH INH SCH (08:40)
[2018-05-16] MEDS: ISOSORBIDE MONONITRATE ER 30 MG TABLET PO SCH (08:40)
[2018-05-16] MEDS: FLUTICASONE/VILANTEROL 200-25MCG/INH INH SCH (10:00)
[2018-05-16] MEDS ORDERED: FUROSEMIDE 20 MG/2 ML IV ONE (12:00)
[2018-05-16 12:30] VITALS: BP 117/67
[2018-05-16 20:16] VITALS: BP 131/68
[2018-05-16] MEDS: MONTELUKAST 10 MG TABLET PO SCH (20:18)
[2018-05-16] MEDS: CEFTRIAXONE 1,000 MG in SODIUM CHLORIDE 0.9% 50 ML IV SCH (23:07)
[2018-05-16] MEDS: NICOTINE 7 MG/24 HR PATCH.TD24 TD SCH (23:54)
[2018-05-16] MEDS: AZITHROMYCIN 500 MG in SODIUM CHLORIDE 0.9% 250 ML IV SCH (23:54)
[2018-05-17 01:29] VITALS: BP 143/78
[2018-05-17] MEDS: ASPIRIN 81 MG TABLET EC PO SCH (04:42)
[2018-05-17 05:02] LABS: BASOPHILS % (AUTO) 0 % (0-1); EOSINOPHILS % (AUTO) 0 % (1-7); LYMPHOCYTES # (AUTO) 0.31 x10^3/uL (1-3.4); LYMPHOCYTES % (AUTO) 2 % (22-44); MD NO; MEAN CORPUSCULAR HEMOGLOBIN 28.7 pg (27.5-34.5); MEAN CORPUSCULAR HGB CONC 33.1 g/dL (33.2-36.2); MEAN CORPUSCULAR VOLUME 86.7 fL (81-97); MEAN PLATELET VOLUME 8.7 fL (7.4-10.4); MONOCYTES # (AUTO) 0.65 x10^3/uL (0.2-0.8); MONOCYTES % (AUTO) 4 % (2-9); NEUTROPHILS # (AUTO) 16.05 x10^3/uL (1.8-6.8); NEUTROPHILS % (AUTO) 94 % (42-75); PLATELET COUNT 291 x10^3/uL (130-400); RED BLOOD COUNT 4.81 x10^6/uL (4.38-5.82); RED CELL DISTRIBUTION WIDTH 15.7 % (9.4-14.8)
[2018-05-17 05:06] LABS: ANION GAP 8 mmol/L (5-15); CALCIUM 8.8 mg/dL (8.5-10.1); CHLORIDE 102 mmol/L (98-107); CREATININE 1.49 mg/dL (0.7-1.3)
[2018-05-17] MEDS: INSULIN LISPRO 100 UNITS/ML, PEN SQ-INSULIN SCH ×4 (07:00→19:58)
[2018-05-17] MEDS: ALBUTEROL/IPRATROPIUM 2.5MG/0.5MG, 3 ML NPPB SCH ×4 (07:00→19:01)
[2018-05-17 08:24] VITALS: BP 132/81
[2018-05-17] MEDS: FLUTICASONE/VILANTEROL 200-25MCG/INH INH SCH (09:00)
[2018-05-17] MEDS: ISOSORBIDE MONONITRATE ER 30 MG TABLET PO SCH (09:40)
[2018-05-17] MEDS: GUAIFENESIN ER 600 MG TABLET PO SCH ×2 (09:40→19:57)
[2018-05-17] MEDS: methylPREDNISolone SOD SUCC 40 MG/ML IV SCH (09:40)
[2018-05-17] MEDS: METOPROLOL TARTRATE 50 MG TABLET PO SCH ×2 (09:43→19:57)
[2018-05-17 12:15] VITALS: BP 151/86
[2018-05-17 19:54] VITALS: BP 122/68
[2018-05-17] MEDS: MONTELUKAST 10 MG TABLET PO SCH (19:57)
[2018-05-17] MEDS: CEFTRIAXONE 1,000 MG in SODIUM CHLORIDE 0.9% 50 ML IV SCH (23:11)
[2018-05-17] MEDS: AZITHROMYCIN 500 MG in SODIUM CHLORIDE 0.9% 250 ML IV SCH (23:49)
[2018-05-17] MEDS: NICOTINE 7 MG/24 HR PATCH.TD24 TD SCH (23:49)
[2018-05-18 01:06] VITALS: BP 136/80
[2018-05-18] MEDS: ASPIRIN 81 MG TABLET EC PO SCH (05:17)
[2018-05-18 06:08] LABS: BASOPHILS # (AUTO) 0.09 x10^3/uL (0-0.1); BASOPHILS % (AUTO) 1 % (0-1); EOSINOPHILS % (AUTO) 0 % (1-7); LYMPHOCYTES # (AUTO) 0.89 x10^3/uL (1-3.4); LYMPHOCYTES % (AUTO) 6 % (22-44); MD NO; MEAN CORPUSCULAR HEMOGLOBIN 28.5 pg (27.5-34.5); MEAN CORPUSCULAR HGB CONC 32.8 g/dL (33.2-36.2); MEAN CORPUSCULAR VOLUME 86.7 fL (81-97); MEAN PLATELET VOLUME 8.7 fL (7.4-10.4); MONOCYTES # (AUTO) 0.95 x10^3/uL (0.2-0.8); MONOCYTES % (AUTO) 7 % (2-9); NEUTROPHILS # (AUTO) 12.83 x10^3/uL (1.8-6.8); NEUTROPHILS % (AUTO) 87 % (42-75); PLATELET COUNT 281 x10^3/uL (130-400); RED BLOOD COUNT 4.77 x10^6/uL (4.38-5.82); RED CELL DISTRIBUTION WIDTH 15.4 % (9.4-14.8)
[2018-05-18 06:10] LABS: ANION GAP 7 mmol/L (5-15); CALCIUM 8.8 mg/dL (8.5-10.1); CHLORIDE 107 mmol/L (98-107); CREATININE 1.33 mg/dL (0.7-1.3)
[2018-05-18] MEDS: INSULIN LISPRO 100 UNITS/ML, PEN SQ-INSULIN SCH ×4 (07:00→21:40)
[2018-05-18] MEDS: ALBUTEROL/IPRATROPIUM 2.5MG/0.5MG, 3 ML NPPB SCH ×4 (07:23→19:43)
[2018-05-18] MEDS: GUAIFENESIN ER 600 MG TABLET PO SCH ×2 (07:59→21:34)
[2018-05-18] MEDS: ISOSORBIDE MONONITRATE ER 30 MG TABLET PO SCH (07:59)
[2018-05-18] MEDS: METOPROLOL TARTRATE 50 MG TABLET PO SCH ×2 (07:59→21:34)
[2018-05-18 08:00] VITALS: BP 130/73
[2018-05-18] MEDS: FLUTICASONE/VILANTEROL 200-25MCG/INH INH SCH (08:03)
[2018-05-18] MEDS ORDERED: CEFD300C37 PO (09:11)
[2018-05-18] MEDS ORDERED: AZIT250T PO (09:11)
[2018-05-18] MEDS ORDERED: MONT10TA9 PO (09:11)
[2018-05-18] MEDS ORDERED: PRED20TA PO (09:11)
[2018-05-18 15:33] VITALS: BP 112/71
[2018-05-18 20:00] VITALS: BP 138/79
[2018-05-18 21:34] VITALS: BP 135/90
[2018-05-18] MEDS: MONTELUKAST 10 MG TABLET PO SCH (21:35)
[2018-05-19] VITALS (9 sets, daily range): BP systolic 96–154; BP diastolic 62–112
[2018-05-19] MEDS: CEFTRIAXONE 1,000 MG in SODIUM CHLORIDE 0.9% 50 ML IV SCH
[2018-05-19] MEDS: NICOTINE 7 MG/24 HR PATCH.TD24 TD SCH (00:33)
[2018-05-19] MEDS: AZITHROMYCIN 500 MG in SODIUM CHLORIDE 0.9% 250 ML IV SCH ×2 (00:33→23:25)
[2018-05-19] MEDS: ASPIRIN 81 MG TABLET EC PO SCH (06:05)
[2018-05-19] MEDS: INSULIN LISPRO 100 UNITS/ML, PEN SQ-INSULIN SCH ×4 (07:00→21:00)
[2018-05-19] MEDS: ALBUTEROL/IPRATROPIUM 2.5MG/0.5MG, 3 ML NPPB SCH ×6 (07:45→19:18)
[2018-05-19] MEDS ORDERED: ADENOSINE 6 MG/2 ML IVPush ONE ×2 (08:00)
[2018-05-19] MEDS ORDERED: DIGOXIN 0.25 MG/ML, 2ML IVPush ONE (08:30)
[2018-05-19] MEDS ORDERED: DILTIAZEM 5 MG/ML, 5ML IVPush ONE (08:30)
[2018-05-19] MEDS ORDERED: DILTIAZEM 125 MG in SODIUM CHLORIDE 0.9% 100 ML IV PRN (08:30)
[2018-05-19] MEDS: FLUTICASONE/VILANTEROL 200-25MCG/INH INH SCH (09:00)
[2018-05-19] MEDS ORDERED: MAGNESIUM SULFATE PMX 2GM/50ML 50 ML IV ONE (10:00)
[2018-05-19] MEDS: ISOSORBIDE MONONITRATE ER 30 MG TABLET PO SCH (10:40)
[2018-05-19] MEDS: METOPROLOL TARTRATE 50 MG TABLET PO SCH ×2 (10:40→20:57)
[2018-05-19] MEDS: GUAIFENESIN ER 600 MG TABLET PO SCH ×2 (10:41→20:57)
[2018-05-19] MEDS ORDERED: VERAPAMIL 2.5 MG/ML, 2ML IVPush ONE (12:30)
[2018-05-19 14:27] LABS: ANION GAP 8 mmol/L (5-15); CALCIUM 8.5 mg/dL (8.5-10.1); CHLORIDE 102 mmol/L (98-107); CREATININE 1.71 mg/dL (0.7-1.3)
[2018-05-19] MEDS: MONTELUKAST 10 MG TABLET PO SCH (20:57)
[2018-05-19] MEDS ORDERED: INSULIN LISPRO 100 UNITS/ML, PEN SQ-INSULIN ONE (21:00)
[2018-05-20] MEDS: CEFTRIAXONE 1,000 MG in SODIUM CHLORIDE 0.9% 50 ML IV SCH (00:39)
[2018-05-20 01:22] VITALS: BP 153/88
[2018-05-20 05:02] LABS: BASOPHILS # (AUTO) 0.04 x10^3/uL (0-0.1); BASOPHILS % (AUTO) 0 % (0-1); EOSINOPHILS # (AUTO) 0.07 x10^3/uL (0-0.4); EOSINOPHILS % (AUTO) 1 % (1-7); LYMPHOCYTES # (AUTO) 1.21 x10^3/uL (1-3.4); LYMPHOCYTES % (AUTO) 9 % (22-44); MD NO; MEAN CORPUSCULAR HEMOGLOBIN 29.1 pg (27.5-34.5); MEAN CORPUSCULAR HGB CONC 33.3 g/dL (33.2-36.2); MEAN CORPUSCULAR VOLUME 87.3 fL (81-97); MEAN PLATELET VOLUME 7.7 fL (7.4-10.4); MONOCYTES # (AUTO) 0.84 x10^3/uL (0.2-0.8); MONOCYTES % (AUTO) 6 % (2-9); NEUTROPHILS # (AUTO) 12.05 x10^3/uL (1.8-6.8); NEUTROPHILS % (AUTO) 85 % (42-75); PLATELET COUNT 329 x10^3/uL (130-400); RED BLOOD COUNT 4.82 x10^6/uL (4.38-5.82); RED CELL DISTRIBUTION WIDTH 15.2 % (9.4-14.8)
[2018-05-20 05:11] LABS: CHLORIDE 104 mmol/L (98-107)
[2018-05-20 05:27] LABS: ANION GAP 10 mmol/L (5-15); CALCIUM 9.1 mg/dL (8.5-10.1); CREATININE 1.39 mg/dL (0.7-1.3)
[2018-05-20] MEDS: ASPIRIN 81 MG TABLET EC PO SCH (06:00)
[2018-05-20] MEDS: ALBUTEROL/IPRATROPIUM 2.5MG/0.5MG, 3 ML NPPB SCH ×4 (06:56→19:58)
[2018-05-20 08:00] VITALS: BP 146/84
[2018-05-20] MEDS: ISOSORBIDE MONONITRATE ER 30 MG TABLET PO SCH (08:33)
[2018-05-20] MEDS: INSULIN LISPRO 100 UNITS/ML, PEN SQ-INSULIN SCH ×4 (08:33→21:57)
[2018-05-20] MEDS: FLUTICASONE/VILANTEROL 200-25MCG/INH INH SCH (08:34)
[2018-05-20] MEDS: NICOTINE 7 MG/24 HR PATCH.TD24 TD SCH (08:34)
[2018-05-20] MEDS: METOPROLOL TARTRATE 50 MG TABLET PO SCH ×2 (08:34→21:56)
[2018-05-20] MEDS: GUAIFENESIN ER 600 MG TABLET PO SCH ×2 (08:37→21:56)
[2018-05-20 14:30] VITALS: BP 127/70
[2018-05-20 20:22] VITALS: BP 137/82
[2018-05-20] MEDS: MONTELUKAST 10 MG TABLET PO SCH (21:56)
[2018-05-21] MEDS: CEFTRIAXONE 1,000 MG in SODIUM CHLORIDE 0.9% 50 ML IV SCH (00:41)
[2018-05-21] MEDS: AZITHROMYCIN 500 MG in SODIUM CHLORIDE 0.9% 250 ML IV SCH (02:06)
[2018-05-21 02:53] VITALS: BP 154/94
[2018-05-21] MEDS: ASPIRIN 81 MG TABLET EC PO SCH (06:06)
[2018-05-21] MEDS: INSULIN LISPRO 100 UNITS/ML, PEN SQ-INSULIN SCH ×4 (07:00→20:30)
[2018-05-21 07:33] VITALS: BP 138/85
[2018-05-21] MEDS: ALBUTEROL/IPRATROPIUM 2.5MG/0.5MG, 3 ML NPPB SCH ×4 (07:43→19:05)
[2018-05-21] MEDS: ISOSORBIDE MONONITRATE ER 30 MG TABLET PO SCH (08:41)
[2018-05-21] MEDS: METOPROLOL TARTRATE 50 MG TABLET PO SCH ×2 (08:42→20:29)
[2018-05-21] MEDS: GUAIFENESIN ER 600 MG TABLET PO SCH ×2 (08:42→20:29)
[2018-05-21] MEDS: NICOTINE 7 MG/24 HR PATCH.TD24 TD SCH (08:45)
[2018-05-21] MEDS: FLUTICASONE/VILANTEROL 200-25MCG/INH INH SCH (08:47)
[2018-05-21 15:45] VITALS: BP 100/55
[2018-05-21 19:37] VITALS: BP 121/71
[2018-05-21] MEDS: MONTELUKAST 10 MG TABLET PO SCH (20:29)
[2018-05-22] MEDS: CEFTRIAXONE 1,000 MG in SODIUM CHLORIDE 0.9% 50 ML IV SCH (00:59)
[2018-05-22 02:55] VITALS: BP 128/80
[2018-05-22] MEDS: ASPIRIN 81 MG TABLET EC PO SCH (05:56)
[2018-05-22] MEDS: ALBUTEROL/IPRATROPIUM 2.5MG/0.5MG, 3 ML NPPB SCH ×3 (06:30→14:37)
[2018-05-22 07:50] VITALS: BP 123/75
[2018-05-22] MEDS: GUAIFENESIN ER 600 MG TABLET PO SCH (08:21)
[2018-05-22] MEDS: INSULIN LISPRO 100 UNITS/ML, PEN SQ-INSULIN SCH ×2 (08:21→11:56)
[2018-05-22] MEDS: ISOSORBIDE MONONITRATE ER 30 MG TABLET PO SCH (08:22)
[2018-05-22] MEDS: METOPROLOL TARTRATE 50 MG TABLET PO SCH (08:22)
[2018-05-22] MEDS: NICOTINE 7 MG/24 HR PATCH.TD24 TD SCH (08:23)
[2018-05-22] MEDS: FLUTICASONE/VILANTEROL 200-25MCG/INH INH SCH (08:23)
[2018-05-22] MEDS ORDERED: PRED20TA PO (12:07)
== END 2018-05-22 15:05 | disposition home health service (06) | DRG 871 ==
LOC: ED 21:59 → EDIP 22:24 → 4EST 23:19
PROVIDERS: ADMIT Hospitalist; ATTEND Hospitalist
DX: A41.9 Sepsis, unspecified organism (principal); J15.9 Unspecified bacterial pneumonia; J96.21 Acute and chronic respiratory failure with hypoxia; J44.1 Chronic obstructive pulmonary disease with (acute) exacerbation; N17.9 Acute kidney failure, unspecified; I47.1 Supraventricular tachycardia; I48.92 Unspecified atrial flutter; J44.0 Chronic obstructive pulmonary disease with (acute) lower respiratory infection; E11.21 Type 2 diabetes mellitus with diabetic nephropathy; E11.22 Type 2 diabetes mellitus with diabetic chronic kidney disease; I48.0 Paroxysmal atrial fibrillation; N18.9 Chronic kidney disease, unspecified; T38.0X5A Adverse effect of glucocorticoids and synthetic analogues, initial encounter; E11.40 Type 2 diabetes mellitus with diabetic neuropathy, unspecified; E87.5 Hyperkalemia; F17.210 Nicotine dependence, cigarettes, uncomplicated; E66.01 Morbid (severe) obesity due to excess calories; K59.00 Constipation, unspecified; I13.10 Hypertensive heart and chronic kidney disease without heart failure, with stage 1 through stage 4 chronic kidney disease, or unspecified chronic kidney disease; I25.10 Atherosclerotic heart disease of native coronary artery without angina pectoris; I25.2 Old myocardial infarction; Z79.82 Long term (current) use of aspirin; Z86.73 Personal history of transient ischemic attack (TIA), and cerebral infarction without residual deficits; Z91.19 Patient's noncompliance with other medical treatment and regimen; Z99.81 Dependence on supplemental oxygen; Z90.89 Acquired absence of other organs; Z82.49 Family history of ischemic heart disease and other diseases of the circulatory system; Z79.899 Other long term (current) drug therapy; Z71.6 Tobacco abuse counseling; Z68.32 Body mass index [BMI] 32.0-32.9, adult
CPT/HCPCS: 36415; 36600; 71045; 71250; 76770; 80048; 80053; 82803; 82947; 82962; 83735; 83880; 84484; 85025; 85730; 87040; 87400; 93005; 93306; 94640; 94660; 96365; 96375; G0378; J0153; J0456; J0696; J7620; Q0162; J1160; J1815; J1940; J2920; J2930; J3475; J7030; J7050; J7512

== ENCOUNTER 2018-06-05 08:41 | Emergency (ER) | payer MEDICARE, MEDICAID ==
[~2018-06-05] VITALS: Ht 167.6 cm; Wt 93.5 kg
[~2018-06-05 08:41] MED LIST changes: +MONT10TA9 PO
[2018-06-05] MEDS ORDERED: MORPHINE SULFATE 4 MG/ML, 1ML ONE (09:14)
[2018-06-05 09:17] LABS: BASOPHILS # (AUTO) 0.03 x10^3/uL (0-0.1); BASOPHILS % (AUTO) 0 % (0-1); EOSINOPHILS # (AUTO) 0.14 x10^3/uL (0-0.4); EOSINOPHILS % (AUTO) 2 % (1-7); LYMPHOCYTES # (AUTO) 1.12 x10^3/uL (1-3.4); LYMPHOCYTES % (AUTO) 12 % (22-44); MD NO; MEAN CORPUSCULAR HEMOGLOBIN 28.5 pg (27.5-34.5); MEAN CORPUSCULAR HGB CONC 33.3 g/dL (33.2-36.2); MEAN CORPUSCULAR VOLUME 85.4 fL (81-97); MEAN PLATELET VOLUME 7.5 fL (7.4-10.4); MONOCYTES % (AUTO) 7 % (2-9); NEUTROPHILS # (AUTO) 7.74 x10^3/uL (1.8-6.8); NEUTROPHILS % (AUTO) 80 % (42-75); PLATELET COUNT 278 x10^3/uL (130-400); RED BLOOD COUNT 4.66 x10^6/uL (4.38-5.82); RED CELL DISTRIBUTION WIDTH 14.9 % (9.4-14.8)
[2018-06-05 09:30] LABS: ANION GAP 9 mmol/L (5-15); CALCIUM 8.8 mg/dL (8.5-10.1); CHLORIDE 101 mmol/L (98-107); CREATININE 1.26 mg/dL (0.7-1.3)
[2018-06-05] MEDS ORDERED: morphine SULFATE 10 MG/ML, 1ML IVPush ONE (09:30)
[2018-06-05 09:33] LABS: TROPONIN I < 0.015 ng/mL (0.000-0.045)
[2018-06-05] MEDS ORDERED: ACETAMINOPHEN 500 MG TABLET ONE (10:48)
[2018-06-05] MEDS ORDERED: ACETAMINOPHEN 500 MG TABLET PO ONE (11:00)
[2018-06-05 11:12] LABS: MICROSCOPIC AUTO
[2018-06-05 11:14] LABS: CULTURE INDICATED? NO
[2018-06-05 11:46] VITALS: BP 125/46
== END 2018-06-05 12:26 | disposition home or self-care (01) ==
LOC: ED 08:56
DX: S00.93XA Contusion of unspecified part of head, initial encounter (principal); S40.011A Contusion of right shoulder, initial encounter; F17.200 Nicotine dependence, unspecified, uncomplicated; W01.0XXA Fall on same level from slipping, tripping and stumbling without subsequent striking against object, initial encounter; Y93.89 Activity, other specified; Y99.8 Other external cause status; Y92.091 Bathroom in other non-institutional residence as the place of occurrence of the external cause
CPT/HCPCS: 36415; 70450; 72125; 73030; 80048; 81001; 84484; 85025; 93005; 96374; 99285; J2270

== ENCOUNTER 2018-08-16 22:31 | Inpatient (IN) | payer MEDICARE, MEDICAID ==
[~2018-08-16] VITALS: Ht 167.6 cm; Wt 99.2 kg
[~2018-08-16 22:31] MED LIST changes: +AMLO-150 PO; -AMLO5TAB7 PO; -ASPI-621 PO; +ASPI81TA45 PO
--- NOTE | 2018-08-16 22:42 | NUR ---
BIB [facility] FOR [facility]STERN[facility] CP,SOB THAT STARTED AT 2130 TONIGHT, PT STATES SOB WORSE WHEN LAYING FLAT, H/X COPD, WEARS 4L N/C O2. MONITORS APPLIED, SIDERAILS UP X2, CALL LIGHT WITHIN REACH, ERP AT BEDSIDE FOR EVAL
[2018-08-16] MEDS ORDERED: ONDANSETRON 2MG/ML, 2ML ONE (22:54)
[2018-08-16] MEDS ORDERED: MORPHINE SULFATE 4 MG/ML, 1ML ONE ×2 (22:54→23:38)
[2018-08-16] MEDS: MORPHINE SULFATE 4 MG/ML, 1ML IVPush PRN ×3 (22:55→23:41)
--- NOTE | 2018-08-16 22:58 | NUR ---
PT MEDICATED PER OCT, [employer]AL AT BEDSIDE
[2018-08-16] MEDS ORDERED: ONDANSETRON 2MG/ML, 2ML IVPush ONE (23:00)
[2018-08-16] MEDS ORDERED: ASPIRIN 81 MG TABLET CHEW PO ONE (23:00)
[2018-08-16] MEDS ORDERED: BROM5DRO3 LEFTEYE (23:14)
[2018-08-16] MEDS ORDERED: DIFL5DRO LEFTEYE (23:15)
--- NOTE | 2018-08-16 23:17 | NUR ---
PT RESTING ON SALLY TODD PT STATES HE HAS CONTINUED CP, 04/07 REQUESTING MORE PAIN MEDICATION AT THIS TIME.
[2018-08-16] MEDS ORDERED: FLUT1AER INH (23:21)
[2018-08-16] MEDS ORDERED: ISOS30TA21 PO (23:22)
[2018-08-16] MEDS ORDERED: LISI-167 PO (23:23)
[2018-08-16 23:29] LABS: BASOPHILS # (AUTO) 0.06 x10^3/uL (0-0.1); BASOPHILS % (AUTO) 0 % (0-1); EOSINOPHILS # (AUTO) 0.15 x10^3/uL (0-0.4); EOSINOPHILS % (AUTO) 1 % (1-7); LYMPHOCYTES % (AUTO) 10 % (22-44); MD NO; MEAN CORPUSCULAR HEMOGLOBIN 29.3 pg (27.5-34.5); MEAN CORPUSCULAR HGB CONC 33.9 g/dL (33.2-36.2); MEAN CORPUSCULAR VOLUME 86.5 fL (81-97); MEAN PLATELET VOLUME 8.1 fL (7.4-10.4); MONOCYTES # (AUTO) 0.61 x10^3/uL (0.2-0.8); MONOCYTES % (AUTO) 4 % (2-9); NEUTROPHILS # (AUTO) 12.33 x10^3/uL (1.8-6.8); NEUTROPHILS % (AUTO) 85 % (42-75); PLATELET COUNT 306 x10^3/uL (130-400); RED BLOOD COUNT 4.82 x10^6/uL (4.38-5.82); RED CELL DISTRIBUTION WIDTH 15.7 % (9.4-14.8)
[2018-08-16 23:32] LABS: ALBUMIN 3.4 g/dL (3.4-5.0); ANION GAP 8 mmol/L (5-15); CHLORIDE 105 mmol/L (98-107)
[2018-08-16 23:38] LABS: ALANINE AMINOTRANSFERASE 17 U/L (12-78); ALKALINE PHOSPHATASE 72 U/L (45-117); BILIRUBIN,TOTAL 0.3 mg/dL (0.2-1.0); CREATININE 1.45 mg/dL (0.7-1.3); TOTAL PROTEIN 7.2 g/dL (6.4-8.2); TROPONIN I < 0.015 ng/mL (0.000-0.045)
--- NOTE | 2018-08-17 00:12 | NUR ---
MEGAN RN: REPORT OF PT FROM AVILA THURMAN AND COVERING CARE OF PT.
[2018-08-17] MEDS ORDERED: NITROGLYCERIN SINGLE TAB 0.4 MG SL PRN (00:30)
[2018-08-17] MEDS ORDERED: NITROGLYCERIN SINGLE TAB 0.4 MG SL ONE (01:07)
--- NOTE | 2018-08-17 01:09 | NUR ---
PT MEDICATE DPER MAR. PT TO CTA.
[2018-08-17] MEDS ORDERED: OMNIPAQUE 350 MG/ML, 100ML BOTTLE ONE (01:19)
[2018-08-17] MEDS ORDERED: MORPHINE SULFATE 4 MG/ML, 1ML ONE (01:46)
[2018-08-17] MEDS: MORPHINE SULFATE 4 MG/ML, 1ML IVPush PRN (01:49)
--- NOTE | 2018-08-17 01:50 | NUR ---
PT RESTING ON GURNEY, MONITORS IN PLACE, MEDICATED FOR CONTINED CP PT REQUESTING, SEE OCT. AWAITING CTA RESUL
[2018-08-17] MEDS ORDERED: ONDANSETRON 2MG/ML, 2ML IVPush PRN ×2 (02:00→03:00)
[2018-08-17] MEDS ORDERED: MORPHINE SULFATE 4 MG/ML, 1ML IVPush PRN (02:00)
[2018-08-17] MEDS ORDERED: ALBUTEROL SULFATE 2.5 MG/3 ML NPPB ONE (02:30)
[2018-08-17] MEDS ORDERED: SODIUM CHLORIDE 0.9% 1,000 ML IV SCH (02:31)
[2018-08-17 02:44] VITALS: BP 143/83
[2018-08-17] MEDS ORDERED: ACETAMINOPHEN 325 MG TABLET PO PRN ×2 (03:00)
[2018-08-17] MEDS ORDERED: ONDANSETRON ODT 4 MG PO PRN (03:00)
[2018-08-17] MEDS ORDERED: LABETALOL 5MG/ML, 20ML IVPush PRN (03:00)
[2018-08-17] MEDS ORDERED: morphine SULFATE 10 MG/ML, 1ML IVPush PRN (03:00)
[2018-08-17] MEDS ORDERED: PROMETHAZINE 25 MG/ML, 1ML IM PRN (03:00)
[2018-08-17] MEDS ORDERED: hydrALAzine 20 MG/ML, 1ML IVPush PRN (03:00)
[2018-08-17] MEDS ORDERED: OXYcodone IR 5MG TABLET PO PRN (03:00)
[2018-08-17] MEDS ORDERED: BISACODYL 10 MG SUPP PR PRN (03:00)
[2018-08-17] MEDS ORDERED: POLYETHYLENE GLYCOL 17 GM PACKET PO PRN (03:00)
[2018-08-17] MEDS ORDERED: DOCUSATE 100 MG CAPSULE PO PRN (03:00)
[2018-08-17] MEDS ORDERED: GABAPENTIN 300 MG CAPSULE PO PRN (03:00)
[2018-08-17] MEDS: methylPREDNISolone SOD SUCC 125 MG/2 ML IVPush SCH ×4 (03:44→20:32)
[2018-08-17 03:51] LABS: HEMOGLOBIN A1C 6.2 % (4.2-6.3)
[2018-08-17 03:53] LABS: FREE T4 (FREE THYROXINE) 0.94 ng/dL (0.76-1.46); THYROID STIMULATING HORMONE 2.87 mIU/L (0.358-3.740)
[2018-08-17 05:55] LABS: TROPONIN I < 0.015 ng/mL (0.000-0.045)
[2018-08-17] MEDS ORDERED: ALBUTEROL SULFATE 2.5 MG/3 ML NPPB PRN (06:00)
[2018-08-17] MEDS ORDERED: ALBUTEROL SULFATE 2.5 MG/3 ML NPPB SCH (06:00)
[2018-08-17] MEDS: ASPIRIN 81 MG TABLET EC PO SCH (06:20)
[2018-08-17] MEDS: HEPARIN 5,000 UNITS/ML, 1ML SQ SCH ×3 (06:21→23:05)
[2018-08-17] MEDS: NICOTINE 7 MG/24 HR PATCH.TD24 TD SCH (06:21)
[2018-08-17 06:33] VITALS: BP 133/86
[2018-08-17] MEDS: ALBUTEROL/IPRATROPIUM 2.5MG/0.5MG, 3 ML NPPB SCH ×4 (08:00→20:35)
[2018-08-17] MEDS: BUDESONIDE 0.5 MG/2 ML INHA NPPB SCH ×2 (08:00→20:35)
[2018-08-17] MEDS: ISOSORBIDE DINITRATE 30 MG TABLET PO SCH (08:35)
[2018-08-17] MEDS: LISINOPRIL 10 MG TABLET PO SCH (08:35)
[2018-08-17] MEDS: TEMPLATE NON-FORMULARY MED. (Bromfenac Sodium (Bromsite) 1 DROP) LEFTEYE SCH (09:00)
[2018-08-17] MEDS ORDERED: FLUTICASONE/VILANTEROL 100-25MCG/INH INH SCH (09:00)
[2018-08-17] MEDS: INSULIN LISPRO 100 UNITS/ML, PEN SQ-INSULIN SCH ×4 (09:07→20:32)
[2018-08-17] MEDS ORDERED: MAGNESIUM SULFATE PMX 2GM/50ML 50 ML IV ONE (10:30)
[2018-08-17 10:54] LABS: TROPONIN I < 0.015 ng/mL (0.000-0.045)
[2018-08-17] MEDS: FUROSEMIDE 20 MG/2 ML IV SCH ×2 (11:12→17:33)
[2018-08-17 12:54] VITALS: BP 122/76
[2018-08-17 18:42] VITALS: BP 150/89
[2018-08-17] MEDS: MONTELUKAST 10 MG TABLET PO SCH (20:32)
[2018-08-17] MEDS ORDERED: MAGNESIUM CHLORIDE 64 MG TABLET.DR PO SCH (21:00)
[2018-08-18 02:11] VITALS: BP 133/79
[2018-08-18] MEDS: methylPREDNISolone SOD SUCC 125 MG/2 ML IVPush SCH ×4 (03:12→20:17)
[2018-08-18 05:26] LABS: MEAN CORPUSCULAR HEMOGLOBIN 28.7 pg (27.5-34.5); MEAN CORPUSCULAR HGB CONC 32.6 g/dL (33.2-36.2); MEAN PLATELET VOLUME 8.5 fL (7.4-10.4); PLATELET COUNT 276 x10^3/uL (130-400); RED BLOOD COUNT 4.51 x10^6/uL (4.38-5.82); RED CELL DISTRIBUTION WIDTH 16.2 % (9.4-14.8)
[2018-08-18 05:31] LABS: ALBUMIN 3.1 g/dL (3.4-5.0); ANION GAP 9 mmol/L (5-15); CALCIUM 9.3 mg/dL (8.5-10.1); CHLORIDE 103 mmol/L (98-107)
[2018-08-18 05:37] LABS: ALANINE AMINOTRANSFERASE 15 U/L (12-78); ALKALINE PHOSPHATASE 61 U/L (45-117); BILIRUBIN,TOTAL 0.2 mg/dL (0.2-1.0); CHOL/HDL RATIO 2.5; CHOLESTEROL, TOTAL 170 mg/dL (140-239); CREATININE 1.56 mg/dL (0.7-1.3); HDL CHOL % 41 % (26-37); HDL CHOLESTEROL (DIRECT) 69 mg/dL (40-60); LDL CHOLESTEROL,CALCULATED 81 mg/dL (54-169); LDL/HDL RATIO 1.2 (0.5-3.0); TOTAL PROTEIN 7.2 g/dL (6.4-8.2); TRIGLYCERIDES 102 mg/dL (50-200); VLDL CHOLESTEROL 20 mg/dL (0-25)
[2018-08-18] MEDS: NICOTINE 7 MG/24 HR PATCH.TD24 TD SCH (05:54)
[2018-08-18] MEDS: ASPIRIN 81 MG TABLET EC PO SCH (05:54)
[2018-08-18 06:04] LABS: BASOPHILS # (AUTO) 0.06 x10^3/uL (0-0.1); BASOPHILS % (AUTO) 0 % (0-1); EOSINOPHILS % (AUTO) 0 % (1-7); LYMPHOCYTES # (AUTO) 0.47 x10^3/uL (1-3.4); LYMPHOCYTES % (AUTO) 2 % (22-44); MD SCAN; MONOCYTES % (AUTO) 4 % (2-9); NEUTROPHILS # (AUTO) 19.37 x10^3/uL (1.8-6.8); NEUTROPHILS % (AUTO) 94 % (42-75)
[2018-08-18 06:49] VITALS: BP 137/82
[2018-08-18] MEDS: BUDESONIDE 0.5 MG/2 ML INHA NPPB SCH ×2 (07:45→19:41)
[2018-08-18] MEDS: ALBUTEROL/IPRATROPIUM 2.5MG/0.5MG, 3 ML NPPB SCH ×4 (07:45→19:41)
[2018-08-18] MEDS ORDERED: REGADENOSON 0.4 MG/5 ML SYRINGE ONE (08:01)
[2018-08-18] MEDS: INSULIN LISPRO 100 UNITS/ML, PEN SQ-INSULIN SCH ×4 (08:32→20:17)
[2018-08-18] MEDS: HEPARIN 5,000 UNITS/ML, 1ML SQ SCH ×3 (08:34→23:02)
[2018-08-18] MEDS: LISINOPRIL 10 MG TABLET PO SCH (08:36)
[2018-08-18] MEDS: ISOSORBIDE DINITRATE 30 MG TABLET PO SCH (08:37)
[2018-08-18] MEDS: TEMPLATE NON-FORMULARY MED. (Bromfenac Sodium (Bromsite) 1 DROP) LEFTEYE SCH (09:00)
[2018-08-18] MEDS: FUROSEMIDE 20 MG/2 ML IV SCH (10:44)
[2018-08-18] MEDS: GUAIFENESIN ER 600 MG TABLET PO SCH ×2 (11:18→23:02)
[2018-08-18] MEDS: DOXYCYCLINE 100MG TABLET PO SCH ×2 (11:18→20:17)
[2018-08-18] MEDS ORDERED: MAGNESIUM CHLORIDE 64 MG TABLET.DR PO SCH (12:00)
[2018-08-18 13:19] VITALS: BP 110/67
[2018-08-18] MEDS: DILTIAZEM CD 180 MG CAP.ER.24H PO SCH (16:18)
[2018-08-18] MEDS: ASPIRIN 325 MG TABLET EC PO SCH (16:18)
[2018-08-18 19:12] VITALS: BP 150/80
[2018-08-18 20:15] VITALS: BP 120/73
[2018-08-18] MEDS: MONTELUKAST 10 MG TABLET PO SCH (20:17)
[2018-08-18] MEDS: MAGNESIUM CHLORIDE 70MG TAB DR PO SCH (20:18)
[2018-08-19 01:15] VITALS: BP 134/66
[2018-08-19] MEDS: methylPREDNISolone SOD SUCC 125 MG/2 ML IVPush SCH ×4 (03:07→23:23)
[2018-08-19 05:19] LABS: ANION GAP 9 mmol/L (5-15); CALCIUM 8.6 mg/dL (8.5-10.1); CHLORIDE 104 mmol/L (98-107); CREATININE 1.61 mg/dL (0.7-1.3)
[2018-08-19] MEDS: ASPIRIN 325 MG TABLET EC PO SCH (05:59)
[2018-08-19] MEDS: NICOTINE 7 MG/24 HR PATCH.TD24 TD SCH (05:59)
[2018-08-19] MEDS: ALBUTEROL/IPRATROPIUM 2.5MG/0.5MG, 3 ML NPPB SCH ×4 (07:00→21:22)
[2018-08-19 07:01] VITALS: BP 129/67
[2018-08-19 07:53] LABS: MEAN CORPUSCULAR HEMOGLOBIN 28.6 pg (27.5-34.5); MEAN CORPUSCULAR HGB CONC 32.6 g/dL (33.2-36.2); MEAN CORPUSCULAR VOLUME 87.6 fL (81-97); MEAN PLATELET VOLUME 8.4 fL (7.4-10.4); PLATELET COUNT 308 x10^3/uL (130-400); RED BLOOD COUNT 4.44 x10^6/uL (4.38-5.82); RED CELL DISTRIBUTION WIDTH 15.5 % (9.4-14.8)
[2018-08-19] MEDS: BUDESONIDE 0.5 MG/2 ML INHA NPPB SCH ×2 (07:57→21:23)
[2018-08-19 08:00] LABS: ALANINE AMINOTRANSFERASE 17 U/L (12-78); ALBUMIN 2.8 g/dL (3.4-5.0); ANION GAP 9 mmol/L (5-15); CALCIUM 8.7 mg/dL (8.5-10.1); CHLORIDE 104 mmol/L (98-107); CREATININE 1.71 mg/dL (0.7-1.3)
[2018-08-19] MEDS: HEPARIN 5,000 UNITS/ML, 1ML SQ SCH ×3 (08:00→22:39)
[2018-08-19 08:03] LABS: ALKALINE PHOSPHATASE 55 U/L (45-117); TOTAL PROTEIN 6.9 g/dL (6.4-8.2)
[2018-08-19 08:17] LABS: BILIRUBIN,TOTAL 0.2 mg/dL (0.2-1.0)
[2018-08-19 08:36] LABS: MD YES
[2018-08-19 08:37] LABS: BAND#(MANUAL) 0.68 x10^3/uL; BANDS%(MANUAL) 4 % (0-7); LYMPH#(MANUAL) 0.17 x10^3/uL (1-3.4); LYMPHS% (MANUAL) 1 % (22-44); MONOS#(MANUAL) 0.34 x10^3/uL (0.3-2.7); MONOS% (MANUAL) 2 % (2-9); MYELOCYTES# (MANUAL) 0.17 x10^3/uL (0-0); MYELOCYTES% (MANUAL) 1 % (0-0); SEG#(MANUAL) 15.73 x10^3/uL (1.8-6.8); SEGS% (MANUAL) 92 % (42-75)
[2018-08-19 08:38] LABS: <PLATELET ESTIMATE> ADEQUATE; <PLT MORPHOLOGY> NORMAL PLT MORPH; <RBC MORPHOLOGY> NORMAL
[2018-08-19] MEDS: MAGNESIUM CHLORIDE 70MG TAB DR PO SCH ×2 (09:00→22:34)
[2018-08-19] MEDS: TEMPLATE NON-FORMULARY MED. (Bromfenac Sodium (Bromsite) 1 DROP) LEFTEYE SCH (09:00)
[2018-08-19] MEDS: INSULIN LISPRO 100 UNITS/ML, PEN SQ-INSULIN SCH ×4 (09:24→22:34)
[2018-08-19] MEDS: ISOSORBIDE DINITRATE 30 MG TABLET PO SCH (09:25)
[2018-08-19] MEDS: DILTIAZEM CD 180 MG CAP.ER.24H PO SCH (09:25)
[2018-08-19] MEDS: DOXYCYCLINE 100MG TABLET PO SCH ×2 (09:25→22:34)
[2018-08-19] MEDS: LISINOPRIL 10 MG TABLET PO SCH (09:26)
[2018-08-19] MEDS: GUAIFENESIN ER 600 MG TABLET PO SCH ×2 (12:53→22:39)
[2018-08-19 14:56] VITALS: BP 133/80
[2018-08-19 20:07] VITALS: BP 125/74
[2018-08-19] MEDS: MONTELUKAST 10 MG TABLET PO SCH (22:34)
[2018-08-19] MEDS ORDERED: INSULIN LISPRO 100 UNITS/ML, PEN SQ-INSULIN ONE (23:30)
[2018-08-20 01:31] VITALS: BP 152/78
[2018-08-20] MEDS: NICOTINE 7 MG/24 HR PATCH.TD24 TD SCH (05:45)
[2018-08-20] MEDS: ASPIRIN 325 MG TABLET EC PO SCH (05:45)
[2018-08-20] MEDS: HEPARIN 5,000 UNITS/ML, 1ML SQ SCH ×2 (05:46→15:34)
[2018-08-20] MEDS: methylPREDNISolone SOD SUCC 125 MG/2 ML IVPush SCH ×3 (05:46→16:42)
[2018-08-20 06:11] LABS: ALANINE AMINOTRANSFERASE 19 U/L (12-78); ANION GAP 8 mmol/L (5-15); CALCIUM 9.1 mg/dL (8.5-10.1); CHLORIDE 104 mmol/L (98-107)
[2018-08-20 06:14] LABS: ALKALINE PHOSPHATASE 57 U/L (45-117); BILIRUBIN,TOTAL 0.3 mg/dL (0.2-1.0); CREATININE 1.46 mg/dL (0.7-1.3); TOTAL PROTEIN 7.3 g/dL (6.4-8.2)
[2018-08-20] MEDS: INSULIN LISPRO 100 UNITS/ML, PEN SQ-INSULIN SCH ×3 (06:16→16:41)
[2018-08-20 06:19] LABS: BASOPHILS % (AUTO) 0 % (0-1); EOSINOPHILS # (AUTO) 0.24 x10^3/uL (0-0.4); EOSINOPHILS % (AUTO) 2 % (1-7); LYMPHOCYTES # (AUTO) 0.28 x10^3/uL (1-3.4); LYMPHOCYTES % (AUTO) 2 % (22-44); MD NO; MEAN CORPUSCULAR HEMOGLOBIN 28.9 pg (27.5-34.5); MEAN CORPUSCULAR HGB CONC 32.6 g/dL (33.2-36.2); MEAN CORPUSCULAR VOLUME 88.6 fL (81-97); MEAN PLATELET VOLUME 8.5 fL (7.4-10.4); MONOCYTES # (AUTO) 0.42 x10^3/uL (0.2-0.8); MONOCYTES % (AUTO) 3 % (2-9); NEUTROPHILS # (AUTO) 11.89 x10^3/uL (1.8-6.8); NEUTROPHILS % (AUTO) 93 % (42-75); PLATELET COUNT 320 x10^3/uL (130-400); RED BLOOD COUNT 4.45 x10^6/uL (4.38-5.82); RED CELL DISTRIBUTION WIDTH 15.8 % (9.4-14.8)
[2018-08-20] MEDS: ALBUTEROL/IPRATROPIUM 2.5MG/0.5MG, 3 ML NPPB SCH ×3 (06:52→13:52)
[2018-08-20] MEDS: BUDESONIDE 0.5 MG/2 ML INHA NPPB SCH (06:52)
[2018-08-20] MEDS: TEMPLATE NON-FORMULARY MED. (Bromfenac Sodium (Bromsite) 1 DROP) LEFTEYE SCH (08:05)
[2018-08-20 08:10] VITALS: BP 125/69
[2018-08-20] MEDS: DILTIAZEM CD 180 MG CAP.ER.24H PO SCH (08:22)
[2018-08-20] MEDS: DOXYCYCLINE 100MG TABLET PO SCH (08:23)
[2018-08-20] MEDS: LISINOPRIL 10 MG TABLET PO SCH (08:23)
[2018-08-20] MEDS: MAGNESIUM CHLORIDE 70MG TAB DR PO SCH (08:23)
[2018-08-20] MEDS: ISOSORBIDE DINITRATE 30 MG TABLET PO SCH (08:24)
[2018-08-20] MEDS: GUAIFENESIN ER 600 MG TABLET PO SCH (11:47)
[2018-08-20 15:33] VITALS: BP 132/70
[2018-08-20] MEDS ORDERED: GUAI600T31 PO (16:41)
[2018-08-20] MEDS ORDERED: DOXY100T PO (16:41)
[2018-08-20] MEDS ORDERED: GABA300C10 PO (16:41)
[2018-08-20] MEDS ORDERED: PRED10TA PO (16:41)
[2018-08-20] MEDS ORDERED: DILT180C53 PO (16:41)
[2018-08-20] MEDS ORDERED: INSU100V8 SQ (16:54)
== END 2018-08-20 19:00 | DRG 291 ==
LOC: ED 23:38 → EDIP 08-17 02:00 → 5SO 08-17 03:15
PROVIDERS: ADMIT Internal Medicine; ATTEND Internal Medicine
DX: I13.0 Hypertensive heart and chronic kidney disease with heart failure and stage 1 through stage 4 chronic kidney disease, or unspecified chronic kidney disease (principal); J96.20 Acute and chronic respiratory failure, unspecified whether with hypoxia or hypercapnia; I50.31 Acute diastolic (congestive) heart failure; J44.1 Chronic obstructive pulmonary disease with (acute) exacerbation; I31.3 Pericardial effusion (noninflammatory); D68.69 Other thrombophilia; N18.3 Chronic kidney disease, stage 3 (moderate); E05.90 Thyrotoxicosis, unspecified without thyrotoxic crisis or storm; M47.812 Spondylosis without myelopathy or radiculopathy, cervical region; I08.3 Combined rheumatic disorders of mitral, aortic and tricuspid valves; F17.210 Nicotine dependence, cigarettes, uncomplicated; I48.0 Paroxysmal atrial fibrillation; I25.10 Atherosclerotic heart disease of native coronary artery without angina pectoris; E11.40 Type 2 diabetes mellitus with diabetic neuropathy, unspecified; E11.22 Type 2 diabetes mellitus with diabetic chronic kidney disease; E66.9 Obesity, unspecified; E11.21 Type 2 diabetes mellitus with diabetic nephropathy; Z86.73 Personal history of transient ischemic attack (TIA), and cerebral infarction without residual deficits; I25.2 Old myocardial infarction; Z91.19 Patient's noncompliance with other medical treatment and regimen; Z79.82 Long term (current) use of aspirin
CPT/HCPCS: 36415; 36600; 71045; 71275; 78452; 80048; 80053; 80061; 82803; 82947; 82962; 83036; 83690; 83735; 84439; 84443; 84484; 85025; 93005; 93017; 93306; 94640; 96374; 96375; 96376; G0378; J1644; J2405; J2785; J7613; J7620; J7626; Q9967; A9502; C9898; J1815; J1940; J2270; J2930; J3475; J7030